=== PATIENT | male | born 1990 | race Two or more races ===

== ENCOUNTER 2016-07-15 17:22 | Emergency (ER) | payer OTHER ==
[~2016-07-15] VITALS: Ht 170.2 cm; Wt 77.1 kg
[2016-07-15 17:38] VITALS: BP 155/83
[2016-07-15] MEDS ORDERED: NKM (17:42)
[2016-07-15] MEDS ORDERED: Methocarbamol 750mg tab ORAL ONE (18:15)
[2016-07-15] MEDS ORDERED: Ketorolac 30mg Inj IM ONE (18:15)
[2016-07-15] MEDS ORDERED: ROBAXIN-750750 MG PO (18:33)
[2016-07-15] MEDS ORDERED: IBUPROFEN600 MG ORAL (18:33)
[2016-07-15 18:42] VITALS: BP 141/79
--- NOTE | 2016-07-15 21:14 | Emergency Room Report ---
History of Present Illness General Chief Complaint: Lower Back Pain or Injury Source: Patient Present Illness HPI The patient is a 25-year-old male for low back pain which began one week prior at work. Patient states that he was bending down to replace a tray and felt a sharp pain in the lower back. The patient denies prior injury of the back. Pain is described as a 5/10 dull ache it is worse with certain movements such as bending over. Pain does not radiate. Patient has tried Motrin which does help. The patient denies any numbness or tingling. he denies any other symptoms Allergies: Coded Allergies: No Known Allergies (Unverified , 07/15/16) Patient History Past Medical History: see triage record Pertinent Family History: none Reviewed Nursing Documentation: PMH: Agreed, PSxH: Agreed Nursing Documentation-PMH Past Medical History: No Stated History Review of Systems All Other Systems: negative except mentioned in HPI Physical Exam Vital Signs Date Time Temp Pulse Resp B/P Pulse Ox O2 Delivery O2 Flow Rate FiO2 07/15/16 17:38 98.2 77 16 155/83 97 Room Air Sp02 EP Interpretation: reviewed, normal General Appearance: no apparent distress, alert, GCS 15, non-toxic Head: normocephalic, atraumatic Eyes: bilateral eye PERRL, bilateral eye normal inspection ENT: hearing grossly normal, normal pharynx, no angioedema, normal voice Neck: full range of motion, supple/symm/no masses Respiratory: chest non-tender, lungs clear, normal breath sounds, speaking full sentences Cardiovascular #1: regular rate, rhythm, no edema Musculoskeletal: normal inspection, gait/station normal, pelvis stable, tender - TTP over bilat paraspinous muscles Neurologic: alert, oriented x3, responsive, motor strength/tone normal, sensory intact, speech normal Skin: normal color, no rash, warm/dry, well hydrated Lymphatic: no adenopathy Medical Decision Making PA Attestation Dr. Eli is my supervising physician. Patient management was discussed with my supervising physician Diagnostic Impression: Primary Impression: Muscle strain ER Course The patient is a 25-year-old male presenting for lower back pain Ddx considered include but not limited to sprain/strain, spasm, contusion PE: vitals WNL. NAD There is tenderness to palpation over bilateral lumbar paraspinous muscles. Normal gait. Limited active range of motion The patient is given Toradol and Robaxin for pain with good relief Patient will be discharged home with a prescription for Motrin and Robaxin. Patient is given limited time off and will followup with workers compensation. ER precautions are given Last Vital Signs Date Time Temp Pulse Resp B/P Pulse Ox O2 Delivery O2 Flow Rate FiO2 07/15/16 18:42 98.2 79 16 141/79 97 Room Air Status: improved Disposition: HOME, SELF-CARE Condition: Improved Scripts Methocarbamol* (ROBAXIN-750*) 750 Mg Tablet 750 MG PO TID, #21 TAB 0 Refills Prov: CHRISSY [email or web address] 07/15/16 Ibuprofen* (MOTRIN*) 600 Mg Tablet 600 MG ORAL Q8H Y for For Pain, #30 TAB 0 Refills Prov: CHRISSY [email or web address] 07/15/16 Referrals: NOT CHOSEN [facility]/,REFERRING (PCP) Patient Instructions: Back Pain, Adult, Muscle Strain Additional Instructions: I discussed my findings with the patient. All questions and concerns have been answered. Treatment and medication compliance have been addressed. I advised the patient that they need to follow up with PMD in 3-5 days. Return to ED if pain remains or worsens, numbness or tingling occurs, new rash is noticed, fever is noticed, or if needed for any reason. Patient verbalized understanding of discharge instructions. CHRISSY HEWITT Jul 15, 2016 21:14
== END 2016-07-15 18:59 | disposition home or self-care (01) ==
LOC: EMR 18:45
DX: S39.012A Strain of muscle, fascia and tendon of lower back, initial encounter (principal); W22.8XXA Striking against or struck by other objects, initial encounter; Y92.511 Restaurant or cafe as the place of occurrence of the external cause; Y99.0 Civilian activity done for income or pay
CPT/HCPCS: 96372; 99284; J1885